=== PATIENT | male | born 1970 | race Two or more races ===

== ENCOUNTER 2022-05-08 17:12 | Emergency (ER) | payer BC ==
[~2022-05-08] VITALS: Ht 172.7 cm; Wt 85.7 kg
[2022-05-08] MEDS ORDERED: ONDANSETRON HCL/PF 4 MG/2 ML VIAL IV ONE (17:30)
--- NOTE | 2022-05-08 17:38 | NUR ---
[id number] C/O SUDDEN ONSET OF CHEST PAIN 8/10 WHILE SITTING AT HOME, LEFT ARM TINGLING, GIVEN 324 OF ASPIRIN AND 0.4 OF NITRO SPRAY WITH NO RELIEF. PT IS A&OX4, BREATHING EVEN AND UNLABORED ON RA. PT ENDORSES VARYING PAIN, 8/10 AT ITS WORST, 2/10 MINIMALLY.
[2022-05-08] MEDS ORDERED: ONDANSETRON HCL/PF 4 MG/2 ML VIAL ONE (17:52)
[2022-05-08 17:57] LABS: BASOPHILS % (AUTO) 0.7 % (0.0-2.0); EOSINOPHILS % (AUTO) 2.9 % (0.0-6.0); HEMATOCRIT 44 % (39-51); LYMPHOCYTES # (AUTO) 2.9 K/uL (0.8-4.8); LYMPHOCYTES % (AUTO) 41.8 % (20.0-44.0); MEAN CORPUSCULAR HGB CONC 34 g/dl (31.0-36.0); MEAN CORPUSCULAR VOLUME 92 fL (80-96); MONOCYTES # (AUTO) 0.5 K/uL (0.1-1.30); MONOCYTES % (AUTO) 7.7 % (2.0-12.0); NEUTROPHILS # (AUTO) 3.2 K/uL (1.8-8.9); NEUTROPHILS % (AUTO) 46.9 % (43.0-81.0); PLATELET COUNT (AUTO) 296 K/uL (150-450); RED BLOOD CELL COUNT(AUTO) 4.83 MIL/uL (4.5-6.0); WHITE BLOOD COUNT (AUTO) 6.8 K/uL (4.3-11.0)
[2022-05-08 18:03] LABS: CALCIUM, SERUM 9.1 mg/dL (8.5-10.1); CARBON DIOXIDE 31 mmol/L (21-32); CHLORIDE 106 mmol/L (98-107); GLUCOSE 83 mg/dL (74-106); POTASSIUM 3.8 mmol/L (3.5-5.1); SODIUM SERUM 143 mmol/L (136-145); UREA NITROGEN, BLOOD 10 mg/dL (7-18)
--- NOTE | 2022-05-08 19:30 | NUR ---
PATIENT IS AAOX4. VITALS STABLE. 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 UPDATES GIVEN TO FAMILY MEMBER
--- NOTE | 2022-05-08 20:45 | NUR ---
IV CANNULA REMOVED
--- NOTE | 2022-05-08 21:00 | NUR ---
Patient discharged to home in stable condition. Written and verbal after care instructions given. Patient verbalizes understanding of instruction.
[2022-05-08 21:35] VITALS: BP 124/95
== END 2022-05-08 21:36 | disposition home or self-care (01) ==
LOC: ER 17:57
DX: R07.89 Other chest pain (principal); R55 Syncope and collapse
CPT/HCPCS: 36415; 71045; 80048; 83880; 84484 ×2; 85025; 85378; 93005 ×2; 96374; 99285; J2405